=== PATIENT | female | born 1995 | race Two or more races ===

== ENCOUNTER → 2023-12-01 14:28 | Outpatient (CLI) | payer OTHER | END | disposition home or self-care (01) | LOC: PRENATAL 14:28 | PROVIDERS: ATTEND Obstetrics & Gynecology Maternal & Fetal Medicine | DX: O36.80X0 Pregnancy with inconclusive fetal viability, not applicable or unspecified (principal); Z36.82 Encounter for antenatal screening for nuchal translucency; Z36.9 Encounter for antenatal screening, unspecified; Z14.8 Genetic carrier of other disease; Z3A.13 13 weeks gestation of pregnancy ==

== ENCOUNTER 2023-12-27 14:19 | Emergency (ER) | payer OTHER ==
[~2023-12-27] VITALS: Ht 167.6 cm; Wt 57.6 kg
[2023-12-27 14:50] LABS: HEMATOCRIT 33.8 % (36.0-45.00); HEMOGLOBIN 12.1 g/dL (12.0-15.00); MEAN CELL VOLUME 86.9 fL (80.00-100.00); MEAN CORPUSCULAR HEMOGLOBIN 31.1 pg (27.00-32.0); MEAN CORPUSCULAR HGB CONC 35.8 g/dl (32.0-36.0); PLATELET COUNT 272 K/uL (150-450); RED BLOOD COUNT 3.89 M/uL (4.00-6.00)
[2023-12-27 15:50] LABS: URINE APPEARANCE Clear; URINE BILIRRUBIN Negative (NEGATIVE); URINE BLOOD Negative; URINE COLOR Yellow; URINE GLUCOSE Negative (NEGATIVE); URINE KETONE Negative (NEGATIVE); URINE LEUKOCYTE Moderate; URINE NITRATE Negative; URINE PROTEIN Negative (NEGATIVE); URINE UROBILINOGEN 0.2 E.U./dl
[2023-12-27 15:54] LABS: URINE BACTERIA 4534.6 uL (0.0-1933); URINE EPITHELIAL CELLS 14.2 uL (0.0-38.8); URINE RBC 25.4 uL (0.0-20.8); URINE WBC 105.5 uL (0.0-23.2)
[2023-12-27 16:12] LABS: URINE CAST 0.45 uL (0.0-1.40)
== END 2023-12-27 20:20 | disposition home or self-care (01) ==
LOC: ER 14:20
PROVIDERS: Emergency Medicine
DX: O99.891 Other specified diseases and conditions complicating pregnancy (principal); Z3A.17 17 weeks gestation of pregnancy; R10.2 Pelvic and perineal pain

== ENCOUNTER → 2024-01-10 13:29 | Outpatient (CLI) | payer OTHER | END | disposition home or self-care (01) | LOC: PRENATAL 13:29 | PROVIDERS: ATTEND Obstetrics & Gynecology Maternal & Fetal Medicine | DX: O44.00 Complete placenta previa NOS or without hemorrhage, unspecified trimester (principal); Z3A.19 19 weeks gestation of pregnancy ==

== ENCOUNTER → 2024-04-11 09:58 | Outpatient (CLI) | payer OTHER | END | disposition home or self-care (01) | LOC: PRENATAL 09:58 | PROVIDERS: ATTEND Obstetrics & Gynecology Maternal & Fetal Medicine | DX: O26.849 Uterine size-date discrepancy, unspecified trimester (principal); O36.8199 Decreased fetal movements, unspecified trimester, other fetus; Z3A.33 33 weeks gestation of pregnancy ==

== ENCOUNTER 2024-06-03 01:53 | Inpatient (IN) | payer OTHER ==
[2024-06-03] VITALS (9 sets, daily range): BP systolic 94–145; BP diastolic 55–76
[~2024-06-03] VITALS: Ht 167.6 cm; Wt 71.2 kg
[2024-06-03] MEDS ORDERED: PRENATABS RX T1 EACH PO (01:58)
[2024-06-03] MEDS ORDERED: RINGERS SOLUTION,LACTATED 1,000 ML IV SCH (02:00)
[2024-06-03 02:12] LABS: PH,URINE 6.5 (5.0-8.0); URINE APPEARANCE Clear; URINE BILIRRUBIN Negative (NEGATIVE); URINE BLOOD Moderate; URINE COLOR Yellow; URINE GLUCOSE Negative (NEGATIVE); URINE KETONE Negative (NEGATIVE); URINE LEUKOCYTE Trace; URINE NITRATE Negative; URINE PROTEIN Negative (NEGATIVE); URINE UROBILINOGEN 0.2 E.U./dl
[2024-06-03 02:13] LABS: HEMATOCRIT 39.5 % (36.0-45.00); HEMOGLOBIN 13.8 g/dL (12.0-15.00); MEAN CELL VOLUME 89.9 fL (80.00-100.00); MEAN CORPUSCULAR HEMOGLOBIN 31.4 pg (27.00-32.0); MEAN CORPUSCULAR HGB CONC 34.9 g/dl (32.0-36.0); PLATELET COUNT 205 K/uL (150-450); RED BLOOD COUNT 4.39 M/uL (4.00-6.00); RED CELL DISTRIBUTION WIDTH 13.7 % (11.5-14.5)
[2024-06-03 02:16] LABS: URINE BACTERIA 305.9 uL (0.0-1933); URINE EPITHELIAL CELLS 20.5 uL (0.0-38.8); URINE WBC 16.1 uL (0.0-23.2)
[2024-06-03 02:54] LABS: INR < 0.93; PARTIAL THROMBOPLASTIN TIME 26.8 SECONDS (22.0-34.0); PROTHROMBIN TIME 10.2 SECONDS (9.0-11.5)
[2024-06-03 02:57] LABS: BILIRUBIN TOTAL 0.47 mg/dL (0.3-1.2); CALCIUM 9.2 mg/dL (8.5-10.1); CREATININE SERUM 0.59 mg/dL (0.55-1.02); GFR 123.21; GLOBULINA 3.7 G/DL (2.4-3.5); POTASSIUM 3.86 mEq/L (3.5-5.1); TOTAL PROTEIN 6.7 gm/dL (6.4-8.2)
[2024-06-03 02:58] LABS: URINE CAST 0.58 uL (0.0-1.40)
[2024-06-03] MEDS ORDERED: OXYTOCIN 10 UNITS/ML VIAL ONE (02:59)
[2024-06-03] MEDS ORDERED: LIDOCAINE HCL 1% 10ML VIAL ONE (02:59)
[2024-06-03] MEDS ORDERED: ERYTHROMYCIN BASE OPHT 1GM EACH TUBE OP ONE ×2 (02:59→08:30)
[2024-06-03] MEDS ORDERED: CHLORHEXIDINE GLUCONATE 120 ML BOTTLE TOP ONE (02:59)
[2024-06-03] MEDS ORDERED: OXYTOCIN 20 UNITS/500ML RL PIGGYBAG IV ONE (05:25)
[2024-06-03] MEDS ORDERED: OXYTOCIN 500 ML IV SCH (06:00)
[2024-06-03] MEDS ORDERED: OXYTOCIN 10 UNITS/ML VIAL IM STA (08:12)
[2024-06-03] MEDS ORDERED: OXYTOCIN 1,000 ML IV SCH (08:15)
[2024-06-03] MEDS ORDERED: CHLORHEXIDINE GLUCONATE 120 ML BOTTLE TP SCH (08:15)
[2024-06-03] MEDS ORDERED: IBUprofen 400 MG TABLET PO PRN (08:15)
[2024-06-03] MEDS ORDERED: LIDOCAINE HCL 1% 10ML VIAL PERCUT ONE (08:30)
[2024-06-03 13:37] LABS: HEMOGLOBIN 12.8 g/dL (12.0-15.00); MEAN CELL VOLUME 88.5 fL (80.00-100.00); MEAN CORPUSCULAR HEMOGLOBIN 31.5 pg (27.00-32.0); MEAN CORPUSCULAR HGB CONC 35.6 g/dl (32.0-36.0); PLATELET COUNT 191 K/uL (150-450); RED BLOOD COUNT 4.07 M/uL (4.00-6.00); RED CELL DISTRIBUTION WIDTH 13.6 % (11.5-14.5)
[2024-06-04] VITALS (7 sets, daily range): BP systolic 99–116; BP diastolic 63–72
[2024-06-05 04:48] VITALS: BP 107/64
[2024-06-05 08:36] VITALS: BP 100/60
== END 2024-06-05 17:08 | disposition home or self-care (01) | DRG 807 ==
LOC: LDR 01:53 → OB/GYN 01:53 → LDR 02:23 → OB/GYN 09:01
PROVIDERS: ADMIT Obstetrics & Gynecology; ATTEND Obstetrics & Gynecology
PROC: 10E0XZZ Delivery of Products of Conception, External Approach (ICD-10-PCS; principal; 2024-06-03)
PROC: 0W8NXZZ Division of Female Perineum, External Approach (ICD-10-PCS; 2024-06-03)
PROC: 4A1HXCZ Monitoring of Products of Conception, Cardiac Rate, External Approach (ICD-10-PCS; 2024-06-03)
DX: O80 Encounter for full-term uncomplicated delivery (principal); Z37.0 Single live birth; Z3A.40 40 weeks gestation of pregnancy